=== PATIENT | male | born 1985 | race Caucasian/White ===

== ENCOUNTER 2021-08-05 14:14 | Emergency (ER) | payer OTHER ==
[~2021-08-05] VITALS: Ht 172.7 cm; Wt 89.4 kg
[2021-08-05] MEDS ORDERED: DIPH,PERTUSS(ACELL),TET VAC/PF 0.5 ML SYRINGE. VAX IM ONE (14:45)
[2021-08-05] MEDS ORDERED: LIDOCAINE 1%/EPI 1:100,000 20 ML VIAL. IJ ONE (14:45)
--- NOTE | 2021-08-05 15:23 | PHYS DOC ---
Past History Past Surgical History: No Surgical History (YESIKA ROLON APRN) Alcohol Use: None (YESIKA ROLON APRN) Adult General Chief Complaint Chief Complaint: LACERATION/AVULSION HPI HPI Patient is a 36-year-old male patient presented to the ED today with left pinky finger laceration, patient states he accidentally cut himself with a pocket kni fe opening a zip tie. Patient is right-handed. (YESIKA ROLON APRN) Review of Systems Review of Systems Constitutional: Denies fever or chills [] Musculoskeletal: Denies back pain or joint pain [] Integument: Reports left pinky finger laceration Neurologic: Denies headache, focal weakness or sensory changes [] All other systems were reviewed and found to be within normal limits, except as documented in this note. (YESIKA ROLON APRN) Current Medications Current Medications Current Medications Medications (Trade) Dose Ordered Sig/Santos Start Time Stop Time Status Last Admin Dose Admin Diphtheria/ Pertussis/Tetanus Vacc (ADACEL TDap SYRINGE) 0.5 ml ONCE ONCE 08/05/21 14:45 08/05/21 14:55 DC Lidocaine/ Epinephrine (Xylocaine 1%-Epi 1:100,000) 20 ml 1X ONCE 08/05/21 14:45 08/05/21 14:55 DC (YESIKA ROLON APRN) Allergies Allergies Allergies Coded Allergies Type Severity Reaction Last Updated Verified No Known Drug Allergies 08/05/21 No (YESIKA ROLON APRN) Physical Exam Physical Exam Constitutional: Well developed, well nourished, no acute distress, non-toxic appearance. Skin: Ventral aspect of the left pinky finger at the MIP joint with a laceration approximately 2 cm long, there is no obvious tendon involvement. Patient able to flex and extend the left pinky finger at the MIP PIP and DIP joints. +2 left radial pulse. Adequate fullness sensation to the left pinky finger. Cap refill less than 2 seconds to left pinky finger. Back: No tenderness, no CVA tenderness. [] Extremities: No tenderness, no cyanosis, no clubbing, ROM intact, no edema. [] Neurologic: Alert and oriented X 3, normal motor function, normal sensory function, no focal deficits noted. [] Psychologic: Affect normal, judgement normal, mood normal. [] (YESIKA ROLON PUBLIC ADDRESS SYSTEM MECHANIC) Current Patient Data Vital Signs Vital Signs Date Time Temp Pulse Resp B/P (MAP) Pulse Ox O2 Delivery O2 Flow Rate FiO2 08/05/21 14:25 98.3 63 20 135/73 (93) 98 Room Air (ОЛЬГАYESIKA PUBLIC [employer]ESS [employer] MECHANIC) EKG EKG [] (YESIKA ROLON PUBLIC [employer]DRESS SYSTEM MECHANIC) Radiology/Procedures Radiology/Procedures Laceration/Wound Repair Wound Location: Left pinky finger Wound's Depth, Shape: Horizontal Wound Length (cm): Approximately 2 cm Wound Explored: clean Irrigated w/ Saline (ccs): 30 Betadine Prep?: Yes Anesthesia: 1% of lidocaine with epinephrine Volume Anesthetic (ccs): Approximately 2 cc Wound Repaired With:Ethilon Suture Size/Type: 5.0/interrupted sutures Number of Sutures: 6 Progress : Wound is covered with Band-Aid (YESIKA ROLON PUBLIC ADDRESS SYSTEM MECHANIC) Heart Score C/O Chest Pain: N/A Risk Factors: Risk Factors: DM, Current or recent (<one month) smoker, HTN, HLP, family history of CAD, obesity. Risk Scores: Risk Factors: DM, Current or recent (<one month) smoker, HTN, HLP, family history of CAD, obesity. (YESIKA ROLON PUBLIC ADDRESS SYSTEM MECHANIC) Course & Med Decision Making Course & Med Decision Making Pertinent Labs and Imaging studies reviewed. (See chart for details) This is a 36-year-old male patient presenting to the ED today with left pinky finger laceration that was closed with stitches by me. Tetanus updated. Wound care instructions and return precautions provided (YESIKA ROLON APRN) Course & Med Decision Making I was the Attending physician on the above date of service of this patient. This patient was evaluated, examined, treated, and dispositioned from the emergency department by the mid-level practitioner. Although I was working at the time , no assistance was requested. Electronically signed, Josephine Vidal DO (JOSEPHINE VIDAL DO) Greer Disclaimer Greer Disclaimer This electronic medical record was generated, in whole or in part, using a voice recognition dictation system. (YESIKA ROLON PUBLIC ADDRESS SYSTEM MECHANIC) Departure Departure: Impression: Primary Impression: Finger laceration Disposition: HOME / SELF CARE / HOMELESS Condition: STABLE Referrals: PCP,NO (PCP) Follow-up with your own doctor or the emergency room in 7 days for stitches to be removed Patient Instructions: Fingertip Laceration Additional Instructions: You have a laceration on your left pinky finger that was closed with stitches. You can remove the dressing in the next 24 hours if it is not bleeding or draining. Keep the area open to air. Apply Neosporin to the area twice a day for 7 days. Monitor the area for any signs of infection including but not limited to increased redness, warmth, yellow drainage from the area and return to the ED. Follow-up with your own doctor or the emergency room in 7 days for stitches to be removed Problem Qualifiers Primary Impression: Finger laceration Encounter type: initial encounter Finger: little finger Damage to nail status: without damage Foreign body presence: without foreign body Laterality: left Qualified Codes: S61.217A - Laceration without foreign body of left little finger without damage to nail, initial encounter YESIKA ROLON APRN Aug 05, 2021 15:23 JOSEPHINE VIDAL DO Aug 06, 2021 06:57
[2021-08-05 15:25] VITALS: BP 127/69
== END 2021-08-05 15:30 | disposition home or self-care (01) ==
LOC: ER 14:14
DX: S61.217A Laceration without foreign body of left little finger without damage to nail, initial encounter (principal); W26.0XXA Contact with knife, initial encounter; Y93.89 Activity, other specified; Y92.89 Other specified places as the place of occurrence of the external cause; Y99.8 Other external cause status
CPT/HCPCS: 12001; 90471; 90715; 99283